=== PATIENT | female | born 1985 | race Caucasian/White ===

== ENCOUNTER 2021-10-07 13:34 | Emergency (ER) | payer BC ==
[2021-10-07 14:17] VITALS: BP 146/88; PULSE 79; TEMP 98.8; BMI 29.2
== END 2021-10-07 14:56 | disposition home or self-care (01) ==
LOC: FER 13:34
DX: R05.1 Acute cough (principal); Z11.52 Encounter for screening for COVID-19
CPT/HCPCS: 71046-TC-FY; 87804; 87807; 99284-25; C9803; U0003; U0005